=== PATIENT | female | born 1935 | race Hispanic/Latino ===

== ENCOUNTER 2016-03-29 09:00 | Outpatient (CLI) | payer MEDICARE ==
--- NOTE | 2016-03-30 10:38 | Mammography Report ---
BILATERAL DIGITAL SCREENING MAMMOGRAM WITH CAD: Comparison is made to a study on November 26, 2014. FINDINGS: There are scattered fibroglandular densities. In the upper-outer quadrant of the left breast, there is a new somewhat rounded nodular asymmetry. This measures less than 1 cm in diameter. No architectural distortion or suspicious calcifications are seen. IMPRESSION: Left parenchymal asymmetry. BI-RADS CATEGORY: 0 = Needs additional imaging evaluation ACR BI-RADS MAMMOGRAPHIC CODES: 0 = Needs additional imaging evaluation; 1 = Negative; 2 = Benign; 3 = Probably benign; 4 = Suspicious; 5 = Malignant; 6 = Known biopsy-proven malignancy COMMENT: 1. Dense breast tissue, i.e., adenosis, fibrocystic changes, etc., may obscure an underlying neoplasm. 2. Approximately 10% of cancers are not detected with mammography. 3. A negative mammography report should not delay biopsy if a clinically suspicious mass is present. RECOMMENDATION: Spot compression images and ultrasound, if needed. COMMENT: Patient follow-up letters are generated in [employer].
== END 2016-03-29 09:01 | disposition home or self-care (01) ==
LOC: SPVWC 09:00
PROVIDERS: ATTEND Internal Medicine
DX: Z12.31 Encounter for screening mammogram for malignant neoplasm of breast (principal)
CPT/HCPCS: 77067; G0202

== ENCOUNTER 2016-09-29 08:23 | Outpatient (CLI) | payer MEDICARE ==
--- NOTE | 2016-09-29 09:37 | Mammography Report ---
LEFT DIGITAL DIAGNOSTIC MAMMOGRAM with CAD: 09/29/16 08:23:00 CLINICAL: Follow-up asymmetry. COMPARISON:04/13/16 FINDINGS: No asymmetry is identified on the last exam has resolved No mass, architectural distortion or suspicious calcifications. IMPRESSION: No mammographic evidence of malignancy. BI-RADS CATEGORY: 1 - - Negative RECOMMENDATION: Return to routine mammographic screening. ACR BI-RADS MAMMOGRAPHIC CODES: 0 = Needs additional imaging evaluation; 1 = Negative; 2 = Benign; 3 = Probably benign; 4 = Suspicious; 5 = Malignant; 6 = Known biopsy-proven malignancy COMMENT: 1. Dense breast tissue, i.e., adenosis, fibrocystic changes, etc., may obscure an underlying neoplasm. 2. Approximately 10% of cancers are not detected with mammography. 3. A negative mammography report should not delay biopsy if a clinically suspicious mass is present. COMMENT: Patient follow-up letters are generated by our [employer] application.
== END 2016-09-29 08:24 | disposition home or self-care (01) ==
LOC: SPVWC 08:23
PROVIDERS: ATTEND Internal Medicine
DX: R92.8 Other abnormal and inconclusive findings on diagnostic imaging of breast (principal)
CPT/HCPCS: G0206-LT

== ENCOUNTER 2017-11-30 09:32 | Outpatient (CLI) | payer MEDICARE ==
--- NOTE | 2017-11-30 10:49 | XRay Report ---
CHEST TWO VIEWS: 11/30/17 09:32:00 CLINICAL: Preoperative clearance. COMPARISON: 10/11/16 FINDINGS: Normal size heart with a prosthetic mitral valve. Normal pulmonary vasculature. The lungs are normally expanded and clear.Median sternotomy wires. Degenerative changes in the spine. IMPRESSION: No acute cardiopulmonary process. Status post mitral valve replacement.
== END 2017-11-30 09:33 | disposition home or self-care (01) ==
LOC: SPVIMAG 09:32
PROVIDERS: ATTEND Internal Medicine
DX: Z01.818 Encounter for other preprocedural examination (principal); Z95.2 Presence of prosthetic heart valve
CPT/HCPCS: 71046

== ENCOUNTER 2018-11-01 08:48 | Outpatient (CLI) | payer MEDICARE ==
--- NOTE | 2018-11-01 15:18 | Mammography Report ---
BONE DEXA CLINICAL: Postmenopausal. TECHNIQUE: 2 site bone DEXA performed on an Hologic scanner. FINDINGS: The average BMD of the left forearm is 0.444g/cm squared with a T score of -2.4 and a Z score of + 1. 2. The average total BMD of the left hip is 0.726 g/cm squared with a T score of -1.8and a Z score of +0 .4. IMPRESSION: 1. WHO classification: Osteopenia with increased fracture risk based on both left forearm and left hi p measurements. fracture risk based on left hip measurements. RECOMMENDATION: Clinical correlation and routine screening. Definitions: BMD equal bone mineral density T score = BMD related to peak bone mass of young adult ([place] expressed an standard deviation) Z score = age-matched BMD expressed in SD World health organization (WHO) diagnostic criteria Normal T score greater than equal to 1 standard deviation Osteopenia T score between -1 and -2.4 standard deviation Osteoporosis T score -2.5 standard deviation or below. Note: BMD is not the only risk factor for fracture; also consider factors such as the patient's age, risk of falling, previous osteoporotic fracture, family history of osteoporotic fractures, current sm oker and low body weight. Z scores are not calculated if greater than 80 years of age. Signer Name: Clme Prasad MD Signed: 11/01/2018 3:13 PM Workstation Name: [id number]
== END 2018-11-01 08:49 | disposition home or self-care (01) ==
LOC: SPVWC 08:48
PROVIDERS: ATTEND Nurse Practitioner
DX: M81.8 Other osteoporosis without current pathological fracture (principal); Z68.25 Body mass index [BMI] 25.0-25.9, adult
CPT/HCPCS: 77080

== ENCOUNTER 2018-12-09 11:01 | Outpatient (CLI) | payer MEDICARE ==
--- NOTE | 2018-12-11 12:35 | Mammography Report ---
DIGITAL SCREENING MAMMOGRAM WITH CAD, 12/09/2018 INDICATION: Routine screening mammography. TECHNIQUE: Digital bilateral 2D mammography was obtained in the craniocaudal and mediolateral obliq ue projections. This examination was interpreted with the benefit of Computer-Aided Detection analysi s. COMPARISON: 12/07/2017 FINDINGS: Breast Density: The breasts are heterogeneously dense, which may obscure small masses. There is no evidence of dominant mass, suspicious calcifications or architectural distortion in eithe r breast. Bilateral benign arterial calcifications. IMPRESSION: No mammographic evidence of malignancy. Follow up recommendation: Routine yearly BI-RADS Category 2: Benign. A "normal" or negative report should not discourage follow up or biopsy of a clinically significant f inding. A written summary of these findings will be mailed to the patient. The patient will be entered into a mammography reporting system which will generate a reminder letter for the patient's next appointmen t at the appropriate interval. The [employer] recommends yearly mammograms starting at age 40 and continuing as l timi as a woman is in good health. Breast MRI is recommended for women with an approximate 20-25% or greater lifetime risk of breast cancer, including women with a strong family history of breast or ova mere cancer or who have been treated for Hodgkin's disease. Signer Name: Clem Prasad MD Signed: 12/11/2018 12:30 PM Workstation Name: [id number]
== END 2018-12-09 11:02 | disposition home or self-care (01) ==
LOC: SPVWC 11:01
PROVIDERS: ATTEND Internal Medicine
DX: Z12.31 Encounter for screening mammogram for malignant neoplasm of breast (principal)
CPT/HCPCS: 77067

== ENCOUNTER 2020-05-24 10:28 | Outpatient (CLI) | payer MEDICARE ==
--- NOTE | 2020-05-24 14:35 | Mammography Report ---
DIGITAL SCREENING MAMMOGRAM WITH CAD, 05/24/2020 CLINICAL INFORMATION / INDICATION: Routine screening mammography. TECHNIQUE: Digital bilateral 2D mammography was obtained in the craniocaudal and mediolateral obliqu e projections. This examination was interpreted with the benefit of Computer-Aided Detection analysis . COMPARISON: 12/09/2018 FINDINGS: Breast Density: There are scattered areas of fibroglandular density. No dominant mass, suspicious calcifications, or architectural distortion in either breast. No interval change. IMPRESSION: No mammographic evidence of malignancy. Follow up recommendation: Routine yearly BI-RADS Category 1: Negative. A "normal" or negative report should not discourage follow up or biopsy of a clinically significant f inding. A written summary of these findings will be mailed to the patient. The patient will be entered into a mammography reporting system which will generate a reminder letter for the patient's next appointmen t at the appropriate interval. The [employer] recommends yearly mammograms starting at age 40 and continuing as l timi as a woman is in good health. Breast MRI is recommended for women with an approximate 20-25% or greater lifetime risk of breast cancer, including women with a strong family history of breast or ova mere cancer or who have been treated for Hodgkin's disease. Signer Name: Stephanie Jean MD Signed: 05/24/2020 2:31 PM Workstation Name: [email or web address]
== END 2020-05-24 10:29 | disposition home or self-care (01) ==
LOC: SPVWC 10:28
PROVIDERS: ATTEND Internal Medicine
DX: Z12.31 Encounter for screening mammogram for malignant neoplasm of breast (principal)
CPT/HCPCS: 77067

== ENCOUNTER 2021-06-01 13:07 | Outpatient (CLI) | payer MEDICARE ==
--- NOTE | 2021-06-02 17:45 | Mammography Report ---
DIGITAL SCREENING MAMMOGRAM WITH CAD, 06/01/2021 CLINICAL INFORMATION / INDICATION: Routine screening mammography. TECHNIQUE: Digital bilateral 2D mammography was obtained in the craniocaudal and mediolateral obliqu e projections. This examination was interpreted with the benefit of Computer-Aided Detection analysis . COMPARISON: 05/24/2020, 12/09/2018 FINDINGS: Breast Density: There are scattered areas of fibroglandular density. No dominant mass, suspicious calcifications, or architectural distortion in either breast. No interval change. IMPRESSION: No mammographic evidence of malignancy. Follow up recommendation: Routine yearly BI-RADS Category 1: NEGATIVE A "normal" or negative report should not discourage follow up or biopsy of a clinically significant f inding. A written summary of these findings will be mailed to the patient. The patient will be entered into a mammography reporting system which will generate a reminder letter for the patient's next appointmen t at the appropriate interval. The [employer] recommends yearly mammograms starting at age 40 and continuing as l timi as a woman is in good health. Breast MRI is recommended for women with an approximate 20-25% or greater lifetime risk of breast cancer, including women with a strong family history of breast or ova mere cancer or who have been treated for Hodgkin's disease. Signer Name: Stephanie Jean MD Signed: 06/02/2021 5:41 PM Workstation Name: [id number]
== END 2021-06-01 13:08 | disposition home or self-care (01) ==
LOC: SPVWC 13:07
PROVIDERS: ATTEND Internal Medicine
DX: Z12.31 Encounter for screening mammogram for malignant neoplasm of breast (principal)
CPT/HCPCS: 77067